=== PATIENT | male | born 1960 | race Caucasian/White ===

== ENCOUNTER 2016-10-27 18:35 | Observation (INO) | payer OTHER ==
[2016-10-27] MEDS ORDERED: NALOXONE HCL 0.4 MG/ML VIAL IVPUSH ONE ×3 (18:44→19:27)
[2016-10-27 18:55] VITALS: BMI 28.2
[2016-10-27 18:59] LABS: BASOPHIL 0.3 % (0-2.0); EOSINOPHIL 3.5 % (0-4.5); MCH 31.6 pg (25.7-33.7); MCHC 33.5 g/dl (32.0-35.9); MEAN CELL VOLUME 94.3 fl (80-96); MEAN PLT VOLUME 8.7 fl (7.5-11.1); NEUTROPHILS 30.5 % (42.8-82.8); PLATELET COUNT 235 K/MM3 (134-434); RDW 15.4 % (11.9-15.9); WHITE BLOOD COUNT 10.1 K/mm3 (4.0-10.0)
[2016-10-27 19:13] LABS: INR 0.89 (0.82-1.09); PROTHROMBIN TIME (PATIENT) 9.8 SEC (9.98-11.88)
[2016-10-27 19:16] LABS: ACTIVATED PTT 31.1 SECONDS (26.9-34.4)
--- NOTE | 2016-10-27 19:18 | PDOC ---
History of Present Illness - History of Present Illness Initial Comments: 10/27/16 20:08 Patient is a 56 year old male with significant medical hx of HTN, daily ETOH abuse, and liver cirrhosis who is presenting to the ED unresponsive after using heroin intravenously. Today the patient was drinking all day with a friend of his, who accompanied him in the ED, when he injected himself with heroin to his left hand in a yetu bathroom. Friend states that the patient came out of the bathroom and was talking, but then suddenly became unresponsive. The patient arrived in to ED cyanotic and apneic with pinpoint pupils. He was immediately given 0.8 mg of narcan in the ED, which improved respiration and return of color. The patient became talkative and states that this was his second time using heroin. He also endorses wearing a clonidine patch for blood pressure control. <Evita Hudson - Last Filed: 10/27/16 20:07> - General History Source: Patient, Friend Exam Limitations: No Limitations <Adilson Walters - Last Filed: 10/27/16 20:49> - General Chief Complaint: Overdose Stated Complaint: OVERDOSE Time Seen by Provider: 10/27/16 18:43 Past History <Evita Hudson - Last Filed: 10/27/16 20:07> - Past Medical History HTN: Yes - Psycho/Social/Smoking Cessation Hx Anxiety: No Suicidal Ideation: No Smoking History: Unknown if ever smoked Information on smoking cessation initiated: No Hx Alcohol Use: Yes (daily) Drug/Substance Use Hx: No (used for first time 10/26/16) <Adilson Walters - Last Filed: 10/27/16 20:49> - Past Medical History Allergies/Adverse Reactions: Allergies Allergy/AdvReac Type Severity Reaction Status Date / Time No Known Allergies Allergy Verified 10/27/16 18:43 Home Medications: Ambulatory Orders Clonidine Patch [Catapres Tts Patch -] 0.1 mg TD WEEKLY 10/27/16 Lisinopril 20 mg PO DAILY 10/27/16 Review of Systems - Review of Systems Comments:: 10/27/16 20:09 Unable to assess, patient unresponsive. <Evita Hudson - Last Filed: 10/27/16 20:07> *Physical Exam - Vital Signs Last Vital Signs Temp Pulse Resp BP Pulse Ox 98 H 14 171/109 100 10/27/16 19:37 10/27/16 19:37 10/27/16 19:37 10/27/16 19:37 - Physical Exam Comments: 10/27/16 20:09 GENERAL: Not responsive. Cyanotic. Not breathing. HEAD: No signs of trauma EYES: Pupils constricted bilaterally. ENT: Auricles normal inspection, hearing grossly normal, nares patent, oropharynx clear without exudates. Moist mucosa NECK: Normal ROM, supple, no lymphadenopathy, JVD, or masses LUNGS: Not breathing. HEART: Palpable carotid pulses. ABDOMEN: Soft, nontender, normoactive bowel sounds. No guarding, no rebound. No masses EXTREMITIES: Normal range of motion, no edema. No clubbing or cyanosis. No cords, erythema, or tenderness NEUROLOGICAL: Not responsive. SKIN: Cyanotic. Dry, normal turgor, no rashes or lesions noted. <Evita Hudson - Last Filed: 10/27/16 20:07> - Vital Signs Last Vital Signs Temp Pulse Resp BP Pulse Ox 96 H 11 L 168/98 100 10/27/16 19:11 10/27/16 19:11 10/27/16 19:11 10/27/16 19:11 <Adilson Walters - Last Filed: 10/27/16 20:49> Heart Score/ECG Review #1 ECG reviewed & interpreted by me at: 18:40 10/27/16 19:32 NSR 97 LBBB, QTC 541 msec <Adilson Walters - Last Filed: 10/27/16 20:49> ED Treatment Course - LABORATORY CBC & Chemistry Diagram: 10/27/16 18:52 10/27/16 18:52 - ADDITIONAL ORDERS Additional order review: Laboratory Results 10/27/16 10/27/16 18:56 18:52 INR 0.89 PTT (Actin FS) 31.1 Alcohol, Quantitative 342.7 H* 10/27/16 18:52 RBC 5.05 MCV 94.3 MCHC 33.5 RDW 15.4 MPV 8.7 Neutrophils % 30.5 L Lymphocytes % 58.3 H Monocytes % 7.4 Eosinophils % 3.5 Basophils % 0.3 - Medications Given in the ED: ED Medications Discontinued Medications Generic Name Dose Route Start Last Admin Trade Name Freq PRN Reason Stop Dose Admin Naloxone HCl 0.8 mg 10/27/16 18:44 10/27/16 18:22 Narcan - IVPUSH 10/27/16 18:45 0.8 mg ONCE ONE Administration Naloxone HCl 0.4 mg 10/27/16 19:18 10/27/16 19:19 Narcan - IVPUSH 10/27/16 19:19 0.4 mg ONCE ONE Administration Naloxone HCl 0.4 mg 10/27/16 19:27 10/27/16 19:30 Narcan - IVPUSH 10/27/16 19:28 0.4 mg ONCE ONE Administration Ondansetron HCl 4 mg 10/27/16 19:37 10/27/16 19:42 Zofran Injection IVPB 10/27/16 19:38 4 mg ONCE ONE Administration <Evita Hudson - Last Filed: 10/27/16 20:07> - LABORATORY CBC & Chemistry Diagram: 10/27/16 18:52 10/27/16 18:52 - ADDITIONAL ORDERS Additional order review: 10/27/16 18:52 RBC 5.05 MCV 94.3 MCHC 33.5 RDW 15.4 MPV 8.7 Neutrophils % 30.5 L Lymphocytes % 58.3 H Monocytes % 7.4 Eosinophils % 3.5 Basophils % 0.3 - Medications Given in the ED: ED Medications Discontinued Medications Generic Name Dose Route Start Last Admin Trade Name Freq PRN Reason Stop Dose Admin Naloxone HCl 0.8 mg 10/27/16 18:44 10/27/16 18:22 Narcan - IVPUSH 10/27/16 18:45 0.8 mg ONCE ONE Administration <Adilson Walters - Last Filed: 10/27/16 20:49> Medical Decision Making - Critical Care Time Total Critical Care Time (minutes): 45 Critical Care Statement: The care of this patient involved high complexity decision making to prevent further life threatening deterioration of the patient 's condition and/or to evalute & treat vital organ system(s) failure or risk of failure. - Medical Decision Making 10/27/16 19:28 A portion of this note was documented by scribe services under my direction. I have reviewed the details of the note, within reason, and agree with the documentation with the following case summary and management plan written by me. Patient treated in the ED. Nursing notes are reviewed and incorporated into the medical decision-making. Vital signs reviewed. Peripheral IV access obtained by the nurse, laboratory studies are drawn and sent, reviewed and interpreted by myself. Vital Signs Temp Pulse Resp BP Pulse Ox 96 H 11 L 168/98 100 10/27/16 19:11 10/27/16 19:11 10/27/16 19:11 10/27/16 19:11 56-year-old male with past medical history of hypertension, alcoholic cirrhosis , alcohol abuse, daily alcohol drinker presents with heroin overdose. According to the friend, the patient reports that he was drink alcohol heavily and was in a fast food restaurant. He went to the bathroom and had injected himself into his left hand with heroin. Patient then returned from the bathroom was talking and suddenly went unresponsive. Patient's friend drove the patient here to the ED. The patient was taken out of the car and brought immediately to room 2 where I had evaluated. The patient had pulses was found to be apneic and cyanotic with pinpoint pupils. Patient was immediately given 0.8 mg of Narcan with improvement in respirations and return coloration. The patient after waking up reports to me that this is second time using heroin. He hasn't used it because he was attempting to control his alcohol withdrawals. Denies any pain at the moment. Patient placed on monitor. We'll observe for Narcan. 10/27/16 20:47 As of note, the initial triage nurse note documented no pulse and no blood pressure. THIS IS INCORRECT. The patient was seen by the triage nurse and me at the same time. I had accessed primary survey and the patient was apneic and cyanotic, but DID HAVE pulses. The patient NEVER had cardiac arrest and that set of vital signs should be DISREGARDED. The patient was given 0.4 mg narcan x 2 more given patient continues to remain sleepy after the narcan effects worn off. CBC, BMP 10/27/16 18:52 10/27/16 18:52 CMP Sodium 144 mmol/L (136-145) 10/27/16 18:52 Potassium 3.7 mmol/L (3.5-5.1) 10/27/16 18:52 Chloride 107 mmol/L (98-107) 10/27/16 18:52 Carbon Dioxide 24 mmol/L (21-32) 10/27/16 18:52 Anion Gap 13 (8-16) 10/27/16 18:52 BUN 12 mg/dL (7-18) 10/27/16 18:52 Creatinine 0.9 mg/dL (0.7-1.3) 10/27/16 18:52 Creat Clearance w eGFR > 60 (>60) 10/27/16 18:52 Random Glucose 202 mg/dL (74-106) H 10/27/16 18:52 Calcium 8.4 mg/dL (8.5-10.1) L 10/27/16 18:52 Total Bilirubin 0.9 mg/dL (0.2-1.0) 10/27/16 18:52 AST 49 U/L (15-37) H 10/27/16 18:52 ALT 40 U/L (12-78) 10/27/16 18:52 Alkaline Phosphatase 65 U/L (45-117) 10/27/16 18:52 Total Protein 8.1 g/dl (6.4-8.2) 10/27/16 18:52 Albumin 4.4 g/dl (3.4-5.0) 10/27/16 18:52 Alcohol level ~342. Given the effects of narcotic OD, will admit patient for observation telemetry. Case discussed with Dr. Daly who accepts the patient to telemetry observation. Case discussed in detail with admitting physician including history, physical exam and ancillary studies. Admitting physician has assumed care for the patient, will follow all pending diagnostics and will complete the evaluation and treatment. <Adilson Walters - Last Filed: 10/27/16 20:49> *DC/Admit/Observation/Transfer - Attestations Scribe Attestion: 10/27/16 20:11 Documentation prepared by Evita Hudson, acting as lead medical technologist for Adilson Walters MD. <Evita Hudson - Last Filed: 10/27/16 20:07> - Discharge Dispostion Admit: Yes <Adilson Walters - Last Filed: 10/27/16 20:49> Diagnosis at time of Disposition: Adverse effect of heroin - Discharge Dispostion Condition at time of disposition: Stable
[2016-10-27 19:27] LABS: ALBUMIN 4.4 g/dl (3.4-5.0); ALK PHOS 65 U/L (45-117); ANION GAP 13 (8-16); BILIRUBIN,TOTAL 0.9 mg/dL (0.2-1.0); CALCIUM 8.4 mg/dL (8.5-10.1); CO2 24 mmol/L (21-32); COCKROFT - GAULT 130.8; CREATININE 0.9 mg/dL (0.7-1.3); GLUCOSE,RANDOM 202 mg/dL (74-106); SGPT/ALT 40 U/L (12-78); TOT PROT 8.1 g/dl (6.4-8.2)
[2016-10-27] MEDS ORDERED: diazePAM CARPU-JECT 10 MG/2 ML DISP.SYRIN IVPUSH ONE (19:32)
[2016-10-27] MEDS ORDERED: ONDANSETRON 4 MG/2 ML VIAL IVPB ONE (19:37)
[2016-10-27] MEDS ORDERED: ONDANSETRON 4 MG/2 ML VIAL ONE (19:38)
[2016-10-27 20:14] LABS: SGOT/AST 49 U/L (15-37)
--- NOTE | 2016-10-27 20:37 | PN ---
<Gin Chandra - Last Filed: 11/15/16 20:04> Teaching Attending Note ATTENDING PHYSICIAN STATEMENT I saw and evaluated the patient. I reviewed the resident's note and discussed the case with the resident. I agree with the resident's findings and plan as documented. SUBJECTIVE: 56 yo M with PMHx of daily ETOH abuse, and liver cirrhosis who presents s/p unresponsiveness after Heroin OD today. As per patients friend, the patient was drinking alcohol all day until he injected himself with heroin in his L arm. Patients friend states he was talking after injecting however suddenly became unresponsive. The patient was brought to the ED for further evaluation. Upon ED evaluation, patient was cyanotic, apneic with pinpoint pupils. Subsequently, patient was administered 0.8 mg of Narcan. Currently, patient is not offering any complaints. Patient denies chest pain, headache or dizziness. He denies fever, chills, nausea, vomit, diarrhea or constipation. He denies dysuria, frequency, urgency or hematuria. PMHx: HTN , Delirium, Hallucinations Social Hx: Daily EtOH abuse, Heroin use, Cigarette use PSHx: Noncontributory OBJECTIVE: Last Vital Signs Temp Pulse Resp BP Pulse Ox 98 H 14 171/109 100 10/27/16 19:37 10/27/16 19:37 10/27/16 19:37 10/27/16 19:37 GENERAL: Awake, alert, and fully oriented, in no acute distress HEENT: Atraumatic. PERRLA, EOMI. Moist mucosa. No JVD LUNGS: No distress, speaks full sentences, clear to auscultation bilaterally HEART: Regular rate and rhythm, normal S1 and S2, no murmurs, rubs or gallops, peripheral pulses normal and equal bilaterally. ABDOMEN: Soft, nontender, normoactive bowel sounds. No guarding, no rebound. No masses EXTREMITIES: Normal inspection, Normal range of motion, no edema. No clubbing or Cyanosis. NEUROLOGICAL: Cranial nerves II through XII grossly intact. Normal speech, normal gait, no focal sensorimotor deficits SKIN: Warm, Dry, normal turgor, no rashes or lesions noted. CBCD WBC 10.1 K/mm3 (4.0-10.0) H 10/27/16 18:52 RBC 5.05 M/mm3 (4.00-5.60) 10/27/16 18:52 Hgb 16.0 GM/dL (11.7-16.9) 10/27/16 18:52 Hct 47.6 % (35.4-49) 10/27/16 18:52 MCV 94.3 fl (80-96) 10/27/16 18:52 MCHC 33.5 g/dl (32.0-35.9) 10/27/16 18:52 RDW 15.4 % (11.9-15.9) 10/27/16 18:52 Plt Count 235 K/MM3 (134-434) 10/27/16 18:52 MPV 8.7 fl (7.5-11.1) 10/27/16 18:52 CMP Sodium 144 mmol/L (136-145) 10/27/16 18:52 Potassium 3.7 mmol/L (3.5-5.1) 10/27/16 18:52 Chloride 107 mmol/L (98-107) 10/27/16 18:52 Carbon Dioxide 24 mmol/L (21-32) 10/27/16 18:52 Anion Gap 13 (8-16) 10/27/16 18:52 BUN 12 mg/dL (7-18) 10/27/16 18:52 Creatinine 0.9 mg/dL (0.7-1.3) 10/27/16 18:52 Creat Clearance w eGFR > 60 (>60) 10/27/16 18:52 Calcium 8.4 mg/dL (8.5-10.1) L 10/27/16 18:52 Total Bilirubin 0.9 mg/dL (0.2-1.0) 10/27/16 18:52 AST 49 U/L (15-37) H 10/27/16 18:52 ALT 40 U/L (12-78) 10/27/16 18:52 Alkaline Phosphatase 65 U/L (45-117) 10/27/16 18:52 Total Protein 8.1 g/dl (6.4-8.2) 10/27/16 18:52 Albumin 4.4 g/dl (3.4-5.0) 10/27/16 18:52 EKG NSR at 97bpm Possible L atrial enlargement L bundle branch block ASSESSMENT AND PLAN: 1.)Heroin OD s/p treatment with narcan Admit to tele for obs overnight Narcan 0.4 mg PRN Detox consult- Dr. Thanh Masters to be called 2.)Alcohol abuse with pending withdrawal IVF Thiamine and folate Multivitamins daily 3.)HTN with EKG showing LBBB r.o ACS Trend trop Echo in the AM Aspirin daily Continue home medication- Clonidine patch Consider cardiology consult Hemoglobin A1C Documentation prepared by Gin Chandra, acting as medical research tech for Elda Daly MD. <Elda Daly - Last Filed: 11/23/16 19:51> Teaching Attending Note Name of Resident: Malathi Barnett
[2016-10-27 20:53] LABS: PLATELET COMMENT2 NO CLOTTING DETECTED; PLATELET ESTIMATE ADEQUATE (NORMAL)
[2016-10-27] MEDS ORDERED: NALOXONE HCL 0.4 MG/ML VIAL IVPUSH PRN (21:33)
--- NOTE | 2016-10-27 21:56 | HP ---
CHIEF COMPLAINT: "i overdosed" PCP: Dr Umesh Downs [phone] HISTORY OF PRESENT ILLNESS: This is a 56 yo M with PMH of HTN (on weekly clonidine patch 0.1 mg), liver cirrhosis and EtOH abuse, who was brought by friend unresponsive after heroin OD. Patient was initially apneic and cyanotic but with pulses and was brought back to responsiveness and stable vitals with narcan (0.8, 0.4x2). He states he drinks heavily on a daily basis (half a fifth of vodka per day) for 40 yrs, last drink today. He has been hospitalized a year ago at [facility] in [place], where he suffered severe EtOH withdrawal with DTs including visual and auditory hallucinations w/o SZ. He has completed rehab a year ago but relapsed. His cirrhosis is mild and f/u bu [facility] PCP who recency did blood work and scheduled a colonoscopy for this month. He used Heroin for the first time in his life today, first snorting it and then injecting into his left wrist, which caused unresponsiveness. He denies ever using other drugs. He states that 5 years ago an EKG revealed a heart block and he had an abnormal TTE. He was recommended to f/u with cardiology but never did. He denies having AL, chest pain, papitations, sob, orthopnea, le edema, weight gain abd pain, diarrhea, hematochezia or melena. her eports some weight loss over the past year due to poor PO intake. He currently feels weak and dizzy. Denies nausea. ER course was notable for: (1)Labs (2)EKG (3)narcan, valum, zofran Recent Travel: denies PAST MEDICAL HISTORY: as above PAST SURGICAL HISTORY: none Social History: lives in apartment alone. 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 Allergies No Known Allergies Allergy (Verified 10/27/16 18:43) HOME MEDICATIONS: Home Medications Medication Instructions Recorded Clonidine Patch [Catapres Tts 0.1 mg TD WEEKLY 10/27/16 Patch -] Lisinopril 20 mg PO DAILY 10/27/16 REVIEW OF SYSTEMS CONSTITUTIONAL: Absent: fever, chills, diaphoresis, generalized weakness, malaise HEENT: Absent: rhinorrhea, nasal congestion, throat pain CARDIOVASCULAR: Absent: chest pain, syncope, palpitations, peripheral edema RESPIRATORY: Absent: cough, shortness of breath, dyspnea with exertion, orthopnea GASTROINTESTINAL: Absent: abdominal pain, abdominal distension, nausea, vomiting, diarrhea, constipation, melena, hematochezia GENITOURINARY: Absent: dysuria MUSCULOSKELETAL: Absent: myalgia, arthralgia SKIN: Absent: rash, itching, pallor HEMATOLOGIC/IMMUNOLOGIC: Absent: easy bleeding, easy bruising ENDOCRINE: Absent: heat intolerance, cold intolerance NEUROLOGIC: Absent: headache, focal weakness or paresthesias, seizure, mental status changes , bladder or bowel incontinence PSYCHIATRIC: Absent: anxiety, depression, suicidal or homicidal ideation, hallucinations. PHYSICAL EXAMINATION Vital Signs - 24 hr 10/27/16 21:29 Pulse Rate [ 85 Left] Respiratory 13 Rate Blood Pressure 158/83 [Arm] O2 Sat by Pulse 98 Oximetry (%) Laboratory Tests 10/27/16 10/27/16 10/27/16 18:52 18:52 18:52 WBC 10.1 H Hgb 16.0 Hct 47.6 Plt Count 235 Neutrophils % 30.5 L Lymphocytes % 58.3 H INR 0.89 PTT (Actin FS) 31.1 Sodium 144 Potassium 3.7 Chloride 107 Carbon Dioxide 24 Anion Gap 13 BUN 12 Creatinine 0.9 Creat Clearance w eGFR > 60 Random Glucose 202 H Calcium 8.4 L Total Bilirubin 0.9 AST 49 H ALT 40 Alkaline Phosphatase 65 Total Protein 8.1 Albumin 4.4 Alcohol, Quantitative 10/27/16 18:56 WBC Hgb Hct Plt Count Neutrophils % Lymphocytes % INR PTT (Actin FS) Sodium Potassium Chloride Carbon Dioxide Anion Gap BUN Creatinine Creat Clearance w eGFR Random Glucose Calcium Total Bilirubin AST ALT Alkaline Phosphatase Total Protein Albumin Alcohol, Quantitative 342.7 H* GENERAL: Awake, alert, and fully oriented, in no acute distress. HEAD: Normal with no signs of trauma. EYES: Pupils equal, round, pinpoint and reactive to light, extraocular movements intact, sclera anicteric, conjunctiva clear. slight left lid lag ( chronic per patient). + horizontal nystagmus EARS, NOSE, THROAT: Moist mucous membranes. NECK: supple no adenopathy or thyromegaly, no JVD, + hepatojugular reflex on R side while reclining 45 degrees LUNGS: b/l wheezes, possibly coming from upper airway. bibasilar crackles HEART: Regular rate and rhythm, normal S1 and S2 without murmur, rub or gallop. ABDOMEN: Soft, nontender, not distended, normoactive bowel sounds, no guarding, no rebound, no masses. + hepatomegaly, no caput medusa or ascites MUSCULOSKELETAL: No CVA tenderness. UPPER EXTREMITIES: 2+ pulses, warm, well-perfused. No cyanosis. No peripheral edema. LOWER EXTREMITIES: 2+ pulses, warm, well-perfused. No calf tenderness. No peripheral edema. NEUROLOGICAL: Cranial nerves II-XII intact. slurred speech. PSYCHIATRIC: Cooperative. Good eye contact. Appropriate mood and affect. SKIN: Warm, dry, no track gilbert ASSESSMENT/PLAN: This is a 56 yo M with PMH of HTN (on weekly clonidine patch 0.1 mg), liver cirrhosis and EtOH abuse, who was brought by friend unresponsive after heroin OD. Heroin Overdose -s/p narcan -does not require further narcan, witals and resp stable -do not expect withdrawal since he is a first time user. -zofran PRN -u tox, ua EtOH Withdrawal -history of DTs with hallucinations; at high risk for DT's -answers yest to all CAGE questions -CIWA 8; etoh level 342 -valium 5 IV q4 hr prn; start librium protocol tomorrow -thiamine, folate, IVF, multivitamins -check vitamin levels -Dr Law consult; patient will consider rehab LBBB -x5 years, asymptomatic -TTE -tele monitoring HTN -continue clonidine patch 0.1 mg weekly Liver Cirrhosis -mild transaminitis ast 49 alt 40 -Platelets 235 wnl; ptt/irn wnl -reports no bleeding tendencies. -continue outpatient f/u FEN NS@125 lytes stable na restricted diet Dispo: obs in tele Problem List - Problem (1) Heroin adverse reaction Code(s): OGV3867 - (2) HTN (hypertension) Code(s): I10 - ESSENTIAL (PRIMARY) HYPERTENSION (3) Alcohol abuse Code(s): F10.10 - ALCOHOL ABUSE, UNCOMPLICATED Visit type - Emergency Visit Emergency Visit: Yes ED Registration Date: 10/27/16 Care time: The patient presented to the Emergency Department on the above date and was hospitalized for further evaluation of their emergent condition. - New Patient This patient is new to me today: Yes Date on this admission: 10/28/16 - Critical Care Critical Care patient: No
[2016-10-27] MEDS ORDERED: diazePAM CARPU-JECT 10 MG/2 ML DISP.SYRIN IVPUSH PRN (22:09)
[2016-10-27] MEDS ORDERED: FOLIC ACID INJECTION - 1 MG, THIAMINE HCL 100 MG, MULTIVIT INJECTION ADULT 10 ML in SOD... IVPB ONE (22:13)
[2016-10-27] MEDS ORDERED: SODIUM CHLORIDE 1,000 ML IV SCH (22:15)
[2016-10-27] MEDS ORDERED: ONDANSETRON 4 MG/2 ML VIAL IVPUSH PRN (22:21)
[2016-10-27] MEDS ORDERED: PNEUMOC 13-VAL CONJ-DIP CRM/PF 0.5 ML DISP.SYRIN IM ONE (22:48)
[2016-10-27] MEDS ORDERED: chlordiazePOXIDE 5 MG CAPSULE PO PRN (23:37)
[2016-10-28 01:28] LABS: URINE APPEARANCE CLEAR; URINE BILIRUBIN NEGATIVE (NEGATIVE); URINE BLOOD NEGATIVE (NEGATIVE); URINE COLOR YELLOW; URINE GLUCOSE (UA) NEGATIVE (NEGATIVE); URINE KETONE NEGATIVE (NEGATIVE); URINE LEUK ESTERASE NEGATIVE (NEGATIVE); URINE NITRITE NEGATIVE (NEGATIVE); URINE PROTEIN NEGATIVE (NEGATIVE); URINE UROBILINOGEN NEGATIVE E.U./dl (0.2-1.0)
[2016-10-28 05:33] LABS: URINE MARIJUANA THC NEGATIVE ng/ml (CUTOFF=50)
[2016-10-28 08:21] LABS: MCH 32.1 pg (25.7-33.7); MCHC 33.8 g/dl (32.0-35.9); MEAN CELL VOLUME 94.8 fl (80-96); MEAN PLT VOLUME 8.1 fl (7.5-11.1); PLATELET COUNT 142 K/MM3 (134-434); RDW 14.6 % (11.9-15.9); WHITE BLOOD COUNT 7.5 K/mm3 (4.0-10.0)
[2016-10-28 08:26] VITALS: BP 153/83; PULSE 68; TEMP 98.1
[2016-10-28 08:45] LABS: CALCIUM 7.9 mg/dL (8.5-10.1); MAGNESIUM 1.7 mg/dL (1.8-2.4); PHOSPHOROUS 2.8 mg/dL (2.5-4.9)
[2016-10-28 09:23] LABS: COCKROFT - GAULT 196.3; CREATININE 0.6 mg/dL (0.7-1.3)
[2016-10-28] MEDS ORDERED: PANTOPRAZOLE 40 MG TABLET (FP) PO SCH (10:00)
[2016-10-28] MEDS ORDERED: cloNIDine-TTS 0.1 MG/24 HRS PATCH.TDWK TD SCH (10:00)
[2016-10-28] MEDS ORDERED: MULTIVITAMINS (DAILY MVI) TABLET (FP) PO SCH (10:00)
[2016-10-28] MEDS ORDERED: chlordiazePOXIDE HCL 25 MG CAPSULE PO PRN (10:00)
[2016-10-28] MEDS ORDERED: THIAMINE HCL 200 MG/2 ML VIAL IVPB SCH (10:00)
[2016-10-28] MEDS ORDERED: CYANOCOBALAMIN (VITAMIN B-12) 100 MCG TABLET PO SCH (10:00)
[2016-10-28] MEDS ORDERED: FOLIC ACID 1 MG TABLET (FP) PO SCH (10:00)
[2016-10-28] MEDS ORDERED: MAGNESIUM SULF 50% (8.12 MEQ/2 ML-1 GM VIAL) IVPB ONE (10:30)
--- NOTE | 2016-10-28 10:44 | DS ---
Physical Exam: SUBJECTIVE: Patient seen and examined Patient is AAOx3, wants to go home, wants to sign against medical advice. Patient's Friend Mr. Chan at bedside to pick him up. Discussed with the patient in details to stay in the hospital and complete the detox and follow the detox center, patient refused rehab. wants to go home and continue drinking. Stated that his brother will be home with him. Explained to the patient that he can go into coma and . Patient wants to sign against medical advice. Witnessed By the Nurse Chio. OBJECTIVE: Vital Signs Period Temp Pulse Resp BP Sys/Davalos Pulse Ox Last 24 Hr 97.8 F-98.4 F 68-95 12-22 136-158/79-89 96-98 PHYSICAL EXAM GENERAL: The patient is awake, alert, and fully oriented, in no acute distress. HEAD: Normal with no signs of trauma. EXTREMITIES: 2+ pulses, warm, well-perfused, no edema. NEUROLOGICAL: Cranial nerves II through XII grossly intact. Normal speech, gait observed PSYCH: Normal mood, normal affect. SKIN: Warm, dry, normal turgor, no rashes or lesions noted. LABS Laboratory Results - last 24 hr 10/27/16 10/28/16 10/28/16 21:45 03:47 05:40 WBC 7.5 RBC 4.45 Hgb 14.2 D Hct 42.1 MCV 94.8 MCHC 33.8 RDW 14.6 Plt Count 142 D MPV 8.1 Sodium Potassium Chloride Carbon Dioxide Anion Gap BUN Creatinine Random Glucose Calcium Phosphorus Magnesium Total Amylase Lipase Vitamin B12 Serum Folate Urine Color Yellow Urine Appearance Clear Urine pH 6.0 Urine Protein Negative Urine Glucose (UA) Negative Urine Ketones Negative Urine Blood Negative Urine Nitrite Negative Urine Bilirubin Negative Urine Urobilinogen Negative Ur Leukocyte Esterase Negative Opiates Screen Positive Methadone Screen Negative Barbiturate Screen Negative Phencyclidine Screen Negative Ur Amphetamines Screen Negative MDMA (Ecstasy) Screen Negative Benzodiazepines Screen Negative Cocaine Screen Negative U Marijuana (THC) Screen Negative 10/28/16 10/28/16 05:40 05:40 WBC RBC Hgb Hct MCV MCHC RDW Plt Count MPV Sodium 146 H Potassium 4.1 Chloride 106 Carbon Dioxide 27 Anion Gap 13 BUN 10 Creatinine 0.6 L D Random Glucose 96 D Calcium 7.9 L Phosphorus 2.8 Magnesium 1.7 L Total Amylase 29 Lipase 135 Vitamin B12 467 Serum Folate 38 H Urine Color Urine Appearance Urine pH Urine Protein Urine Glucose (UA) Urine Ketones Urine Blood Urine Nitrite Urine Bilirubin Urine Urobilinogen Ur Leukocyte Esterase Opiates Screen Methadone Screen Barbiturate Screen Phencyclidine Screen Ur Amphetamines Screen MDMA (Ecstasy) Screen Benzodiazepines Screen Cocaine Screen U Marijuana (THC) Screen HOSPITAL COURSE: Date of Admission:10/27/16 Date of Discharge: 10/28/16 This is a 56 yo M with PMH of HTN (on weekly clonidine patch 0.1 mg), liver cirrhosis and EtOH abuse, who was brought by friend unresponsive after heroin OD. #Heroin Overdose s/p narcan no further Narcan needed #EtOH Withdrawal was started on Librium , Detox doctor was notified. Patient discussed with in details but does not want to stay. Patient is AAox3, would like to go home and continue drinking. All the risks explained to the patient, alcohol withdrawel seizure, coma, . Friend is at bedside, taking him home. Patient wants to go home against medical advice. The nurse Verna at bedside. Minutes to complete discharge: 30 Discharge Summary Reason For Visit: ADVERSE EFFECT OF HEROIN Current Active Problems Alcohol abuse (Acute) HTN (hypertension) (Acute) Heroin adverse reaction (Acute) - Home Medications Comprehensive Discharge Medication List: Ambulatory Orders Clonidine Patch [Catapres Tts Patch -] 0.1 mg TD WEEKLY 10/27/16 Lisinopril 20 mg PO DAILY 10/27/16 This patient is new to me today: Yes Date on this admission: 10/28/16 Emergency Visit: Yes ED Registration Date: 10/27/16 Care time: The patient presented to the Emergency Department on the above date and was hospitalized for further evaluation of their emergent condition. Critical Care patient: No - Discharge Referral Referred to [facility] Med P.C.: No
[2016-10-28] MEDS ORDERED: chlordiazePOXIDE HCL 25 MG CAPSULE PO SCH (11:00)
[2016-10-28] MEDS ORDERED: PNEUMOCOCCAL 23 VACCINE 0.5 ML VIAL IM ONE (11:00)
--- NOTE | 2016-10-28 11:17 | CONSULT ---
Consult Detox [facility] - History History of Present Illness: chronic alcoholism opioid overdose - History Source History Provided By: Medical Record Limitations to Obtaining History: Other - Alcohol/Substance Use Hx Alcohol Use: Yes (daily) - Past Medical History Cardio/Vascular: Yes: HTN Assessment Plan - Plan Plan: Pt.signed out AMA, therefore unable to evaluate.
[2016-10-29] MEDS ORDERED: chlordiazePOXIDE HCL 25 MG CAPSULE PO SCH (11:00)
[2016-10-30] MEDS ORDERED: chlordiazePOXIDE 5 MG CAPSULE PO SCH (11:00)
--- NOTE | 2016-10-30 12:53 | EKG ---
Test Reason : Blood Pressure : / mmHG Vent. Rate : 097 BPM Atrial Rate : 097 BPM P-R Int : 204 ms QRS Dur : 172 ms QT Int : 426 ms P-R-T Axes : 056 009 181 degrees QTc Int : 541 ms NORMAL SINUS RHYTHM POSSIBLE LEFT ATRIAL ENLARGEMENT LEFT BUNDLE BRANCH BLOCK ABNORMAL ECG NO PREVIOUS ECGS AVAILABLE Confirmed by AMY WHITE, SUE ([id number]) on 10/30/2016 12:53:19 PM Referred By: Confirmed By:SUE REYES MD
== END 2016-10-28 11:20 | disposition left against medical advice (07) ==
LOC: JER 18:35 → JERBED 20:49 → J4W 21:59
PROVIDERS: ADMIT Internal Medicine; ATTEND Internal Medicine
PROC: 3E033GC Introduction of Other Therapeutic Substance into Peripheral Vein, Percutaneous Approach (ICD-10-PCS; principal; 2016-10-27)
PROC: 3E0337Z Introduction of Electrolytic and Water Balance Substance into Peripheral Vein, Percutaneous Approach (ICD-10-PCS; 2016-10-27)
DX: T40.1X1A Poisoning by heroin, accidental (unintentional), initial encounter (principal); Y92.511 Restaurant or cafe as the place of occurrence of the external cause; F10.10 Alcohol abuse, uncomplicated; I10 Essential (primary) hypertension; I44.7 Left bundle-branch block, unspecified; K74.60 Unspecified cirrhosis of liver
CPT/HCPCS: 36415; 71010-TC; 80048; 80053; 80307; 81003; 82150; 82607; 82746; 83690; 83735; 84100; 84207; 85025; 85027; 85610; 85730; 93005; 93010; 99285-25; G0378